=== PATIENT | male | born 1930 | race Caucasian/White ===

== ENCOUNTER → 2016-09-21 | Outpatient (CLI) | payer OTHER, BC ==
[~2016-09-21] MED LIST: ARICEPT 5 MG TAB5 MG PO; ASA81BEC PO; AVAPRO75 MG PO; AZOPT OPHTH1 %/10 M1 OPHTHALMIC; BENADRYL25 MG PO; COREG6.25 MG PO; DIGOXIN125 MCG PO; ELIQUIS5 MG PO; LASIX 20 MG TAB20 MG PO; LOMOTIL TABLET1 EACH PO; PRIMIDONE50 MG PO; WELCHOL 625 MG625 MG PO; XALATAN2.5 ML OPHTHALMIC
[2016-09-21 11:05] VITALS: BP 112/61
[2016-09-21 11:50] VITALS: BP 150/63
== END ==
LOC: OPONC 01:07
DX: D50.9 Iron deficiency anemia, unspecified (principal)
CPT/HCPCS: 95000

== ENCOUNTER → 2016-09-28 | Outpatient (CLI) | payer OTHER, BC | LOC: OPONC 11:56 | DX: D50.9 Iron deficiency anemia, unspecified (principal) | CPT/HCPCS: 95000 ==